=== PATIENT | female | born 1990 | race Two or more races ===

== ENCOUNTER 2018-11-16 18:54 | Emergency (ER) | payer OTHER ==
[~2018-11-16] VITALS: Ht 154.9 cm; Wt 66.0 kg
[2018-11-16] MEDS ORDERED: LIDOCAINE HCL 1% 20ML VIAL (Pyxis) INJ INFIL ONE (20:45)
[2018-11-16] MEDS ORDERED: CEFTRIAXONE SODIUM 250 MG/VIAL IM ONE (20:45)
[2018-11-16] MEDS ORDERED: AZITHROMYCIN 500 MG TABLET PO ONE (20:45)
[2018-11-16 21:54] LABS: CLARITY URINE CLOUDY (CLEAR); COLOR URINE YELLOW (YELLOW); KETONES URINE NEGATIVE (NEGATIVE); LEUKOCYTE ESTERASE URINE TRACE (NEGATIVE); NITRITE URINE NEGATIVE (NEGATIVE); OCCULT BLOOD URINE TRACE (NEGATIVE); PH URINE 6.5 (4.5-8.0); PROTEIN URINE NEGATIVE (NEGATIVE); SPECIFIC GRAVITY URINE 1.023 (1.005-1.030); UROBILINOGEN URINE 0.2 E.U./dL (0.2-1.0)
[2018-11-16 23:02] VITALS: BP 105/56
== END 2018-11-16 23:06 | disposition home or self-care (01) ==
LOC: ER 19:17
DX: N76.0 Acute vaginitis (principal); J02.9 Acute pharyngitis, unspecified; F12.10 Cannabis abuse, uncomplicated
CPT/HCPCS: 81003; 81025; 87070; 87086; 87210; 87430; 96372; 99283; J0696; J3490

== ENCOUNTER 2022-12-20 18:02 | Emergency (ER) | payer OTHER ==
[~2022-12-20] VITALS: Ht 154.9 cm; Wt 70.4 kg
[2022-12-20 18:09] VITALS: BP 111/66
[2022-12-20] MEDS ORDERED: LORAZEPAM 1MG TABLET PO ONE (19:15)
[2022-12-20] MEDS ORDERED: KETOROLAC 60MG/2ML VIAL IM ONE (19:15)
[2022-12-20] MEDS ORDERED: ACETAMINOPHEN 325MG TABLET PO PRN (20:00)
[2022-12-20 20:18] LABS: BASOPHILS % 0.3 % (0.0-2.0); EOSINOPHILS % 0.5 % (0.0-5.0); HEMATOCRIT. 37.8 % (36.0-48.0); HEMOGLOBIN. 12.9 g/dL (12.0-16.0); LYMPHOCYTES % 20.8 % (20.0-50.0); MEAN CORPUSCULAR HEMOGLOBIN 31.6 pg (28.0-32.0); MEAN CORPUSCULAR VOLUME 92.9 fL (81.0-99.0); MEAN PLATELET VOLUME 7.2 fl (7.4-10.4); MONOCYTES % 8.6 % (2.0-8.0); NEUTROPHILS % 69.8 % (40.0-76.0); PLATELET 360 x1000/uL (130-400); RED BLOOD CELL COUNT 4.07 mill/uL (4.2-5.4)
[2022-12-20 21:01] LABS: CHLORIDE 104 mEq/L (98-107)
[2022-12-20 21:26] LABS: B-HCG QUANTITATIVE 17184 mIU/mL (<3)
[2022-12-20] MEDS ORDERED: ACET-2708 MT (21:44)
[2022-12-20] MEDS ORDERED: PNV1TABL50 MT (21:51)
== END 2022-12-20 21:56 | disposition home or self-care (01) ==
LOC: ER 18:02
DX: M54.50 Low back pain, unspecified (principal); F12.10 Cannabis abuse, uncomplicated
CPT/HCPCS: 36415; 76801; 76817; 80048; 81025; 84702; 85025; 86850; 86900; 86901; 99284; Z7610; J1885

== ENCOUNTER 2023-11-19 02:23 | Emergency (ER) | payer MEDICAID, OTHER ==
[~2023-11-19] VITALS: Ht 154.9 cm; Wt 70.0 kg
[~2023-11-19 02:23] MED LIST: ACET-2708 MT; PNV1TABL50 MT
[2023-11-19 02:36] VITALS: BP 112/69; PULSE 96; RESP 18; TEMP 97.6; O2SAT 98
== END 2023-11-19 05:47 | disposition left against medical advice (07) ==
LOC: ER 02:23
DX: N94.9 Unspecified condition associated with female genital organs and menstrual cycle (principal); Z53.21 Procedure and treatment not carried out due to patient leaving prior to being seen by health care provider
CPT/HCPCS: 99281